=== PATIENT | female | born 1955 | race Caucasian/White ===

== ENCOUNTER 2017-03-23 12:35 | Emergency (ER) | payer BC ==
[2017-03-23 13:28] VITALS: BP 100/48
--- NOTE | 2017-03-23 13:34 | UC ---
Upper Extremity HPI - HPI Summary HPI Summary: pain in right wrist, after tripping over a fence netting, landed on write arm. Pain and swelling. felt dizzy right after the incident, but is feeling better now. refused any pain medication. - History of Current Complaint Chief Complaint: UCUpperExtremity Stated Complaint: RT ARM INJURY Time Seen by Provider: 03/23/17 13:27 Hx Obtained From: Patient ?: No Onset/Duration: Sudden Onset, Lasting Hours Severity Initially: Severe Severity Currently: Severe Location Of Pain: Is Discrete @ - right wrist Aggravating Factor(s): Movement Alleviating Factor(s): Ice Associated Signs And Symptoms: Positive: Swelling, Weakness Related History: Dominant Hand Right - Risk Factors Non-Orthopedic Risk Factor: Negative DVT Risk Factors: Negative - Allergies/Home Medications Allergies/Adverse Reactions: Allergies Allergy/AdvReac Type Severity Reaction Status Date / Time Codeine AdvReac skin Verified 03/23/17 13:11 irritation PMH/Surg Hx/FS Hx/Imm Hx Previously Healthy: Yes - Surgical History Surgical History: Yes Surgery Procedure, Year, and Place: LEFT KNEE SURGERY, LEFT CHEST BIOPSY X2, UMBILICAL HERNIA REPAIR - Family History Known Family History: Positive: None Negative: Cardiac Disease, Hypertension - Social History Alcohol Use: Occasionally Substance Use Type: None Smoking Status (MU): Never Smoked Tobacco Review of Systems Constitutional: Negative Skin: Negative Eyes: Negative ENT: Negative Respiratory: Negative Cardiovascular: Negative Gastrointestinal: Negative Genitourinary: Negative Motor: Negative Neurovascular: Negative Musculoskeletal: Arthralgia, Decreased ROM, Edema, Myalgia Neurological: Negative Psychological: Negative All Other Systems Reviewed And Are Negative: Yes Physical Exam Triage Information Reviewed: Yes Appearance: Well-Appearing, Well-Nourished, Pain Distress Vital Signs: Initial Vital Signs Temp 98.5 F 03/23/17 13:11 Pulse 67 03/23/17 13:11 Resp 16 03/23/17 13:11 BP 100/48 03/23/17 13:11 Pulse Ox 100 03/23/17 13:11 Vital Signs Reviewed: Yes Eye Exam: Normal ENT Exam: Normal Dental Exam: Normal Neck exam: Normal Respiratory Exam: Normal Cardiovascular Exam: Normal Abdominal Exam: Normal Bowel Sounds: Positive: Present Musculoskeletal: Positive: Strength Limited @, ROM Limited @ - right wrist, Edema @ - over the distal radius Neurological Exam: Normal Psychological Exam: Normal Skin Exam: Normal Upper Extremity Course/Dx - Course Course Of Treatment: hx obtained, exam performed ,meds reviewed, xray obtained, minimally displaced distal radius fracture, refused pain medication, tito and splint applied, referral to ortho given. - Differential Dx/Diagnosis Differential Diagnosis/HQI/PQRI: Contusion, Fracture (Closed), Strain, Sprain Provider Diagnoses: distal right radius fracture Discharge - Discharge Plan Condition: Stable Disposition: HOME Patient Education Materials: Wrist Fracture in Adults (ED) Referrals: Juan Carlos Chen MD [Medical Doctor] - Stephenie Garcia MD [Primary Care Provider] - Additional Instructions: Use the tito and splint until you see the orthopedic. Call for appointment on Saturday. Ibuprofen for pain and swelling.
--- NOTE | 2017-03-23 14:26 | RAD ---
INDICATION: Right wrist pain after a fall COMPARISON: None. TECHNIQUE: 3 views right wrist. REPORT: Best depicted on the AP view, there is a faint lucent line at the distal right radius extending to the cortex articulating with the ulna. On the lateral view there is cortical discontinuity of the dorsal surface of the distal radius. The remaining bones are intact and appropriately aligned. IMPRESSION: Minimally displaced distal right radius fracture.
== END 2017-03-23 14:43 | disposition home or self-care (01) ==
LOC: UCCORT 12:35
DX: S52.511A Displaced fracture of right radial styloid process, initial encounter for closed fracture (principal); W01.0XXA Fall on same level from slipping, tripping and stumbling without subsequent striking against object, initial encounter; Y93.9 Activity, unspecified; Y92.9 Unspecified place or not applicable; Z88.5 Allergy status to narcotic agent
CPT/HCPCS: 99212; G0463

== ENCOUNTER 2018-07-15 09:48 | Inpatient (IN) | payer BC ==
--- NOTE | 2018-07-08 18:20 | HP ---
AMENDED REPORT NOW INCLUDES COSIGNER DESIGNATION PREOPERATIVE HISTORY AND PHYSICAL EXAM: DATE OF SURGERY/ADMISSION: 07/15/18 DATE OF OFFICE VISIT/ENCOUNTER: 07/04/18 ATTENDING SURGEON: Analisa Rangel MD * (DICTATED BYNEERAJ MCKEON) PROCEDURE: Left total knee arthroplasty. CHIEF COMPLAINT: Left knee pain. HISTORY OF PRESENT ILLNESS: Xuan Cruz is a 62-year-old female with end- stage osteoarthritis of the left knee. She has failed conservative treatment and has elected to proceed with a left total knee arthroplasty, which is scheduled for 07/15/18. PAST MEDICAL HISTORY: Osteoarthritis. PAST SURGICAL HISTORY: 1. Left knee arthroscopy in 1999. 2. Left breast biopsy in 1989. 3. Hernia repair. CURRENT MEDICATIONS: None. ALLERGIES: CODEINE causes hives and itching. FAMILY MEDICAL HISTORY: Noncontributory. SOCIAL HISTORY: The patient is retired. She denies tobacco and recreational drug use. She drinks alcohol on occasion. REVIEW OF SYSTEMS: A complete 14-point review of systems were reviewed with the patient and positive for congestion. She denies history of DVT, PE, hepatitis, HIV, MRSA, and anesthesia problems. Otherwise, review of systems is negative. PHYSICAL EXAMINATION GENERAL: Well-developed, well-nourished 62-year-old female, in no acute distress. VITAL SIGNS: Height 5 feet 3 inches, weight 148 pounds. Blood pressure 121/78 , pulse rate 72. HEENT: Normocephalic, atraumatic. Pupils were equal, round, and reactive to light and accommodation. Extraocular movements are intact. Throat is clear. NECK: Supple. No palpable lymph nodes. PULMONARY: Lungs are clear to auscultation bilaterally. No wheezes, rales, or rhonchi. CARDIOVASCULAR: Regular rate and rhythm. S1, S2. No murmurs, rubs, or gallops. No edema. ABDOMEN: Positive bowel sounds. Soft, nontender. MUSCULOSKELETAL: On exam of the left lower extremity, the patient's skin is intact. There are no abrasions or open wounds. She has a moderate effusion with tenderness to palpation along the medial joint line. Range of motion from 10 to 130 degrees of flexion. No varus or valgus instability. She has a varus bow at the knee. Distal neurovascular function is intact. NEUROLOGIC: Alert and oriented x3. Cranial nerves II through XII are intact. Sensation is intact to light touch. IMAGING STUDIES: Multiple views of the patient's left knee show severe end- stage arthritis. There is medial [id number] contact with chronic wear of the medial tibial plateau. There is tricompartmental joint space narrowing, osteophyte formation, and subchondral sclerosis. IMPRESSION: Left knee end-stage osteoarthritis. PLAN: The patient is scheduled to undergo a left total knee arthroplasty with Dr. Rangel on 07/15/18. Dr. Rangel discussed the risks and benefits of the surgery at today's visit and all of her questions were answered. She will follow up with Dr. Rangel 2 weeks after the surgery. NEERAJ MCKEON [id number]/[facility] #: [id number] MTDD
[~2018-07-15 09:48] MED LIST: Buffered Lidocaine 0.9% SYRIN* 5 ML/SYR SYRINGE INTRADERM ONE; Tranexamic Acid 1,000 MG in NS 0.9% 50 ML* (outpatient use) IV SCH
--- OUTSIDE RECORDS SUMMARY | 2018-07-15 09:52 | XMS REPORT ---
:1955 External Reference #:[id number] Author Organization [facility] Address [address] [place] [address] Phone [phone] Care Team Providers Name Role Phone Stephenie Talavera MD Primary Care Physician Unavailable Payers Type Date Identification Numbers Payment Provider Subscriber Commercial Effective: Policy Number: BS Joseluis FERREIRA Danie Cruz 2011 [id number] Expires: 2017 PayID: [id number] [address] [address] [place] [address] Medigap Part B Policy Number: [id number] Parviz Dnaie Cruz PayID: [id number] [address] [address] [place] [address] Problems Date Description Provider Status Onset: 05/28/2018 Localized, primary osteoarthritis Analisa Rangel M.D. Active Family History Date Family Member(s) Problem(s) Comments General No Current Problems Social History Type Date Description Comments Marital Status Lives With Spouse Occupation Retired ETOH Use Drinks 5 Alcoholic Beverages Per Week Smoking Patient has never smoked Exercise Type/Frequency Exercises regularly Exercise Type/Frequency Walks daily Allergies, Adverse Reactions, Alerts Date Description Reaction Status Severity Comments 09/04/2016 Codeine active Medications Medication Date Status Form Strength Qnty SIG Indications Ordering Provider No Active 03/25/20 Active Unknown Medications 17 Multivitamin Hx Tablets 1 by Unknown Adult 00 - mouth 03/24/20 every day 17 Vital Signs Date Vital Result Comment 07/04/2018 Height 63 inches 5'3" Weight 148.00 lb BP Systolic 121 mmHg BP Diastolic 78 mmHg Respiratory Rate 16 /min Body Temperature 97.8 F Pain Level 3 BMI (Body Mass Index) 26.2 kg/m2 05/28/2018 Height 63 inches 5'3" Weight 151.00 lb Heart Rate 72 /min BP Systolic 112 mmHg BP Diastolic 72 mmHg BMI (Body Mass Index) 26.7 kg/m2 04/15/2017 Height 63 inches 5'3" Weight 140.00 lb BP Systolic 120 mmHg BP Diastolic 76 mmHg Respiratory Rate 18 /min Body Temperature 97.5 F Pain Level 0 BMI (Body Mass Index) 24.8 kg/m2 03/25/2017 Height 63 inches 5'3" Weight 140.00 lb Heart Rate 74 /min BP Systolic 114 mmHg BP Diastolic 62 mmHg Respiratory Rate 16 /min Pain Level 4 BMI (Body Mass Index) 24.8 kg/m2 Results Description No Information Procedures Date CPT Code Description Status 03/25/2017 32665 CLST TRMT Distal Radial FX Completed 08/05/2015 Mammogram Completed 04/19/2010 71585 Xray Knee 3 Views Completed 04/19/2010 09936 Rad Exam; Knee, Ap&L Completed Encounters Type Date Location Provider CPT E/M Dx Office Visit 05/28/2018 [facility] Analisa Rangel M.D. 91374 M25.562 8:30a [facility] M25.462 M17.12 M21.162 Office Visit 04/19/2010 10:00a [facility] [place], [address] 844.1 [facility] Plan of Care Future Appointment(s):07/15/2018 11:30 am - Donavon Argueta PA-C at [facility]07/15/2018 11:30 am - NEERAJ Horne at [facility]07/15/2018 11:30 am - Analisa Rangel M.D. at [facility]07/04/2018 - Analisa Rangel M.D.M25.562 Pain in left kneeFollow up:2 weeks post opM17.12 Unilateral primary osteoarthritis, left knee
[2018-07-15] MEDS ORDERED: Buffered Lidocaine 0.9% SYRIN* 5 ML/SYR SYRINGE ONE (09:59)
[2018-07-15] MEDS ORDERED: ceFAZolin 2 GM PREMIX in ORs 2 GM/50 ML BAG IVPB ONE (09:59)
[2018-07-15] MEDS ORDERED: Bupivacaine 0.5% SDV PF* 30ML VIAL ONE ×2 (11:21→11:43)
[2018-07-15] MEDS ORDERED: Midazolam* 1 MG/ML 5 ML VIAL (5 MG) ONE ×2 (11:24→11:59)
[2018-07-15] MEDS ORDERED: ROPIVACAINE 5 MG/ML 30 ML BTL (0.5%) ONE (11:26)
[2018-07-15] MEDS ORDERED: fentaNYL* 50 MCG/ML 2 ML VIAL (100 MCG VIAL) ONE (11:52)
[2018-07-15] MEDS ORDERED: Dexamethasone IV* 4 MG/ML 1 ML (4 MG) ONE (12:01)
[2018-07-15] MEDS ORDERED: Ondansetron INJ* 2 MG/ML VIAL IV PRN (13:16)
[2018-07-15] MEDS ORDERED: Naloxone* 0.4 MG/ML 1 ML VIAL IV PRN (13:16)
[2018-07-15] MEDS ORDERED: HYDROmorphone INJ1* 1 MG/ML SYRINGE IV PRN (13:16)
[2018-07-15] MEDS ORDERED: fentaNYL* 50 MCG/ML 2 ML VIAL (100 MCG VIAL) IV PRN (13:16)
[2018-07-15] MEDS ORDERED: Scopolamine 1.5 mg* PATCH TRANSDERM PRN (13:16)
[2018-07-15] MEDS ORDERED: oxyCODONE/Acetamin 5/325 MG* TAB PO PRN ×2 (13:16→14:25)
[2018-07-15] MEDS ORDERED: Ondansetron INJ* 2 MG/ML VIAL ONE ×2 (13:47→14:53)
[2018-07-15] MEDS ORDERED: Ketorolac INJ* 30 MG/ML 1 ML VIAL ONE (14:22)
[2018-07-15] MEDS ORDERED: Morphine VIAL* 4 MG/ML VIAL (1 ml vial) IV PRN (14:25)
[2018-07-15] MEDS ORDERED: Bisacodyl SUPP* 10 MG SUPP PR PRN (14:25)
[2018-07-15] MEDS ORDERED: diPHENhydraMINE IV* 50 MG/ML 1 ml VIAL (BENADRYL) IV PRN (14:25)
[2018-07-15] MEDS ORDERED: Acetaminophen TAB* 325 MG PO PRN (14:25)
[2018-07-15] MEDS ORDERED: Magnesium Hydroxide LIQ* 30 ML UDC PO PRN (14:25)
[2018-07-15] MEDS ORDERED: Warfarin TAB(*) 6 MG PO ONE (17:00)
[2018-07-15] MEDS ORDERED: Scopolamine 1.5 mg* PATCH ONE (17:55)
[2018-07-15] MEDS ORDERED: Scopolamine 1.5 mg* PATCH TRANSDERM ONE (19:00)
[2018-07-15] MEDS: oxyCODONE TAB* 5 MG TAB PO PRN (19:14)
[2018-07-15] MEDS: ceFAZolin 1 GM in Dextrose (*) 1 GM/50 ML BAG IVPB SCH (20:04)
[2018-07-15] MEDS: Magnesium Hydroxide LIQ* 30 ML UDC PO SCH (22:17)
[2018-07-15] MEDS: Docusate CAP* 100 MG PO SCH (22:17)
[2018-07-16] MEDS: oxyCODONE TAB* 5 MG TAB PO PRN ×3 (01:21→22:01)
[2018-07-16] MEDS: Ondansetron INJ* 2 MG/ML VIAL IV PRN ×2 (02:53→10:22)
[2018-07-16] MEDS: ceFAZolin 1 GM in Dextrose (*) 1 GM/50 ML BAG IVPB SCH ×2 (03:55→12:50)
[2018-07-16] MEDS: Cyclobenzaprine TAB* 10 MG PO PRN ×2 (03:58→23:54)
[2018-07-16] MEDS: oxyCODONE/Acetamin 5/325 MG* TAB PO PRN ×3 (05:55→18:41)
[2018-07-16 06:36] LABS: Hematocrit 30 % (35-47); Hemoglobin 9.9 g/dl (12.0-16.0); Mean Platelet Volume 7.1 fL (7.4-10.4); Platelet Count 252 10^3/ul (150-450)
[2018-07-16 06:40] LABS: INR 1.14 (0.77-1.02)
[2018-07-16 06:49] LABS: EGFR Non-African American 83.1 (>60)
--- NOTE | 2018-07-16 07:29 | PN ---
Progress Note - Progress Note Date of Service: 07/16/18 SOAP: Subjective: Pt. is alert, c/o n/v overnight. Objective: LLE - dressing c/d/i. distally +df/pf, full sens lt, 2+ dp pulse. 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
[2018-07-16] MEDS ORDERED: NS 0.9% 1000 ML* 1,000 ML IV ONE (07:30)
[2018-07-16] MEDS: Docusate CAP* 100 MG PO SCH ×2 (09:48→22:02)
[2018-07-16] MEDS: Magnesium Hydroxide LIQ* 30 ML UDC PO SCH ×2 (09:48→22:02)
[2018-07-16] MEDS ORDERED: oxyCODONE TAB* 5 MG TAB PO PRN (12:10)
[2018-07-16] MEDS: Enoxaparin(*) 40 MG/0.4 ML SYR SUBCUT SCH (12:50)
[2018-07-16] MEDS ORDERED: Warfarin TAB(*) 4 MG PO ONE (17:00)
[2018-07-16] MEDS ORDERED: Warfarin TAB(*) 6 MG PO SCH (17:00)
--- NOTE | 2018-07-16 22:04 | OP ---
OPERATIVE REPORT: DATE OF OPERATION: 07/15/18 DATE OF : 53 SURGEON: Analisa Rangel MD SWITCH OPERATOR: NEERAJ Gu Mr. Argueta did help throughout the procedure with preparation of the leg, wound retraction, manipulat ion of the knee, and wound closure. ANESTHESIOLOGIST: Dr. Morel. ANESTHESIA: Spinal. PRE-OP DIAGNOSIS: Severe end-stage degenerative osteoarthritis of the left knee joint. POST-OP DIAGNOSIS: Severe end-stage degenerative osteoarthritis of the left knee joint. OPERATIVE PROCEDURE: Left total knee arthroplasty. TOURNIQUET TIME: 47 minutes. COMPLICATIONS: None. ESTIMATED BLOOD LOSS: 200 mL. SPECIMEN: Bone and cartilage from the left knee joint sent to Pathology. HARDWARE: This is cemented [employer] total knee arthroplasty hardware, 2 packages of Simplex bone cement. For the femur, a left Narrow 5 Oxinium posterior stabilized femoral component. For the tibia, a size 3 left tibial blase plate. For the insert, an 11-mm posterior stabilized articular ins ert. For the patella, a 32-mm 3 peg all poly patella with 7.5 thickness. BRIEF HISTORY/INDICATIONS: Ms. Cruz is a 62-year-old female with years of increasingly severe lef t knee pain. She failed conservative treatment with anti- inflammatories, pain medication, intra-art icular injection, and physical therapy. Due to continued pain and decreased quality of life, she has elected to undergo left total knee arthroplasty. Radiographs showed bone on bone osteoarthritis. Inf ormed consent was obtained from the patient. She understood the risks of surgery included, but were not limited to, bleeding, infection, damage to nearby structures, continued pain, need for further harp rgery, intraoperative fracture, nerve palsy, hardware failure or loosening, knee stiffness, loss of m otion, stroke, heart attack, blood clot, and . She wished to proceed. INTRAOPERATIVE FINDINGS: Intraoperatively, the patient was noted to have very osteopenic bone throug hout the case. She had complete loss of cartilage in the medial and patellofemoral compartments. DESCRIPTION OF PROCEDURE: Ms. Cruz was identified in the preanesthesia unit. Her left lower extre mity was marked as the correct operative side. Informed consent was signed and placed in the chart. The patient was taken to the operating room and placed under spinal anesthesia. A Sepulveda catheter wa s placed. A tourniquet was placed on the left thigh. Left lower extremity was prepped and draped in the usual sterile fashion. Preop time-out was made to correctly identify the patient, side, and sit e. Perioperative antibiotics were given within 1 hour of incision. Tourniquet was inflated. A midline incision was made with a 10 blade and carried down to the extenso r mechanism. A new 10 blade was used to make a standard medial parapatellar arthrotomy. The patella was subluxed laterally. Electrocautery was used to subperiosteally elevate soft tissue off the supe romedial tibia to the mid sagittal plane. The knee was flexed up. The anterior horn of the lateral meniscus . A drill was used to enter the distal femur. Intramedullary distal femoral cutting g uide was pinned on the distal femur. Oscillating saw was used to make the distal femoral cut. Next, the external rotation guide was pinned on the distal femur. The distal femur was sized to a size 5. A size 5 multi-cutting jig was pinned on the distal femur. Oscillating saw was used to make the ap propriate 4 chamfer cuts. The PCL was completely released. Extramedullary tibial cutting guide was pinned on the proximal tibi a. Oscillating saw was used to make the proximal tibial cut perpendicular to the mechanical axis of the tibia. The bone was carefully removed. The knee was brought out into full extension. The spacer block had good fit with the knee in full extension. Medial and lateral ligaments were well balanced . Flexion and extension gaps were well balanced. The knee was flexed up. Lamina aeronautical design engineer was placed both medially and laterally. Any remaining meniscus was carefully removed using electrocautery. Cu rved osteotomes were used to remove any posterior osteophytes. Tibial tray and drop chrissy were placed and once again confirmed a satisfactory tibial cut. A left size 5 narrow femoral trial was impacted on to the distal femur and had good fit. The box for the posterior stabilized implant was prepared using a reamer and box cut osteotome. A tibial tray t rial with an 11-mm insert trial was placed and the knee was taken through range of motion. The knee had full extension to 130 degrees of flexion with satisfactory patellofemoral tracking. The patella was everted. 7 mm of bone and cartilage was carefully removed using an oscillating saw. Patella was sized to a size 32. The 3 peg holes were drilled through the size 32 guide. The 32 trial patella w ith 7.5 thickness was placed and the knee was taken through a range of motion. There was satisfactor y patellofemoral tracking. All trials were carefully removed. The tibia was subluxed anteriorly. Th e tibia was sized to a size 3. Proximal tibia was prepared using a size 3 keel punch. All bony cut surfaces were copiously irrigated with sterile saline and dried. Final implants were adrien ented into place starting with the tibia, followed by the femur and lastly the patella. An 11-mm ins ert trial was placed and the knee was taken out into the full extension. Tourniquet was turned down and electrocautery was used to obtain meticulous hemostasis. Once the cement had fully cured, the in sert trial was removed. Any excess cement was removed from around the capsule and hardware. Final i nsert trial chosen was an 11-mm posterior stabilized articular insert, size 3-4. This was locked int o position on the tibial tray. The stability of the insert was checked and rechecked and noted to be stable. The knee was once again copiously irrigated with sterile saline. The extensor mechanism was closed u sing interrupted #1 Vicryl. The rest of the incision was closed in a layered fashion using 0 and 2-0 Vicryls. The skin was closed using running 3-0 nylon suture. Sterile Xeroform, 4x4s, and Webril we re used to cover the incision. Juan M wrap and cold pack were placed over this. The patient was taken to the PACU in stable condition. Intended weightbearing will be weightbearing as tolerated. Intended DVT prophylaxis will be Coumadin with a Lovenox bridge. [id number]/[facility] #: [id number]
[2018-07-17] MEDS: oxyCODONE/Acetamin 5/325 MG* TAB PO PRN ×3 (00:42→08:35)
[2018-07-17 06:19] LABS: Hematocrit 27 % (35-47); Hemoglobin 9.1 g/dl (12.0-16.0); Mean Platelet Volume 6.8 fL (7.4-10.4); Platelet Count 222 10^3/ul (150-450)
[2018-07-17 06:25] LABS: INR 1.82 (0.77-1.02)
[2018-07-17 07:42] VITALS: BP 107/54
[2018-07-17] MEDS: Docusate CAP* 100 MG PO SCH (08:35)
[2018-07-17] MEDS: Magnesium Hydroxide LIQ* 30 ML UDC PO SCH (08:35)
--- NOTE | 2018-07-17 10:57 | PN ---
Progress Note - Progress Note Date of Service: 07/17/18 SOAP: Subjective: Pt. is alert, c/o n/v overnight. States that she is ready to go home today. Objective: LLE - dressing c/d/i, changed today, incision is c/d/i, no erythema drainage present. distally +df/pf, full sens lt, 2+ dp pulse. Vital Signs Temp 98.9 F 07/17/18 07:32 Pulse 91 07/17/18 07:32 Resp 16 07/17/18 08:45 BP 107/54 07/17/18 07:32 Pulse Ox 96 07/17/18 08:45 Intake & Output 07/16/18 07/17/18 07/17/18 18:59 06:59 18:59 Intake Total 2725 1560 480 Output Total 975 1575 200 Balance 1750 -15 280 Intake: IV Fluids 1000 LR 777 NS 223 IVPB 1000 NS 1000 Medicated IV 55 Cefazolin 55 Oral 670 1560 480 Output: Urine 700 1575 200 Sepulveda 275 Other: Estimated Void Medium # Bowel Movements 0 # Voids 1 Assessment: 62 yo F pod 2 s/p LTKA Plan: cont zofran and scop patch for n/v lovenox and coumadin, will dose in discharge instructions. wbat pt/ot D/C home today
[2018-07-17] MEDS: oxyCODONE TAB* 5 MG TAB PO PRN (11:51)
[2018-07-17] MEDS: Enoxaparin(*) 40 MG/0.4 ML SYR SUBCUT SCH (11:52)
[2018-07-18] MEDS ORDERED: Scopolamine PATCH Remove* 1 NOTE MISC PATCH OFF ONE (13:17)
[2018-07-18] MEDS ORDERED: Scopolamine PATCH Remove* 1 NOTE MISC PATCH OFF SCH (19:00)
== END 2018-07-17 12:15 | disposition home or self-care (01) | DRG 302 ==
LOC: AA 09:48 → SSU 16:21
PROVIDERS: ADMIT Orthopaedic Surgery Adult Reconstructive Orthopaedic Surgery; ATTEND Orthopaedic Surgery Adult Reconstructive Orthopaedic Surgery
PROC: 0SRD069 Replacement of Left Knee Joint with Oxidized Zirconium on Polyethylene Synthetic Substitute, Cemented, Open Approach (ICD-10-PCS; principal; 2018-07-15 11:30)
DX: M17.12 Unilateral primary osteoarthritis, left knee (principal); M25.462 Effusion, left knee; H91.93 Unspecified hearing loss, bilateral; R11.2 Nausea with vomiting, unspecified; I95.9 Hypotension, unspecified; M85.862 Other specified disorders of bone density and structure, left lower leg; M25.762 Osteophyte, left knee; Z88.5 Allergy status to narcotic agent; Z72.89 Other problems related to lifestyle; Z78.0 Asymptomatic menopausal state; Z87.01 Personal history of pneumonia (recurrent); Z82.61 Family history of arthritis; Z81.1 Family history of alcohol abuse and dependence; Z80.8 Family history of malignant neoplasm of other organs or systems; Z83.1 Family history of other infectious and parasitic diseases
CPT/HCPCS: 36415; 80048; 84300; 85014; 85018; 85049; 85610; 88305; 88311; A9270-GY; C1776; J0690; J1100; J1650; J1885; J2250; J2270; J2405; J2795; J3010